=== PATIENT | female | born 1985 | race Caucasian/White ===

== ENCOUNTER 2025-09-17 12:42 | Day surgery (SDC) | payer OTHER ==
[2025-09-17] MEDS ORDERED: LIDOCAINE HCL 2% 100 MG/5 ML IJ ONE (12:43)
[2025-09-17 13:05] LABS: HCG URINE TEST NEGATIVE (NEGATIVE)
[2025-09-17] MEDS ORDERED: propofoL IV ONE (14:05)
[2025-09-17] MEDS ORDERED: Lactated Ringers 1,000 ML IV ONE (14:35)
--- NOTE | 2025-09-17 16:35 | XRAY ---
Indication: Right C2-C4 MBB. Intraoperative fluoroscopy provided for 17 seconds. 2 digital spot image submitted for interpretation demonstrates posterior needle tips projecting over expected right C2-C4 nerve roots. Correlate with intraoperative findings/report.
--- NOTE | 2025-09-17 17:00 | XRAY ---
17 seconds of fluoroscopy was used in surgery for a right C2-C4 MBB.
== END 2025-09-17 14:35 | disposition home or self-care (01) ==
LOC: SDC-PAIN 12:42
PROVIDERS: ATTEND Psychiatry & Neurology Pain Medicine
DX: M47.812 Spondylosis without myelopathy or radiculopathy, cervical region (principal)